=== PATIENT | male | born 1950 | race Caucasian/White ===

== ENCOUNTER → 2016-08-15 | Outpatient (CLI) | payer OTHER, MEDICARE | LOC: BHFA 10:45 | PROVIDERS: ATTEND Internal Medicine Cardiovascular Disease | DX: I51.7 Cardiomegaly (principal) ==

== ENCOUNTER → 2016-09-19 | Outpatient (CLI) | payer OTHER, MEDICARE | LOC: FIMAGING 12:26 | PROVIDERS: ATTEND Internal Medicine Cardiovascular Disease | DX: E04.1 Nontoxic single thyroid nodule (principal) ==

== ENCOUNTER → 2017-09-09 | Outpatient (CLI) | payer OTHER, MEDICARE | LOC: BHFA 08:30 | PROVIDERS: ATTEND Internal Medicine | DX: I25.10 Atherosclerotic heart disease of native coronary artery without angina pectoris (principal); I10 Essential (primary) hypertension | CPT/HCPCS: 78452; 93017; 93306; A9500; J2785 ==

== ENCOUNTER 2018-07-04 07:42 | Day surgery (SDC) | payer OTHER, MEDICARE ==
[2018-07-04] MEDS ORDERED: BUPIVACAINE 0.5% 30 ML SDV ONE (08:00)
[2018-07-04] MEDS ORDERED: HYDROmorphONE/DILAUDID 2 MG/ML INJ IVP PRN (08:05)
[2018-07-04] MEDS ORDERED: NALOXONE HCL 0.4 MG/ML INJ IVP PRN (08:05)
[2018-07-04] MEDS ORDERED: fentaNYL 100 MCG/2 ML INJ IVP PRN (08:05)
[2018-07-04] MEDS ORDERED: METOCLOPRAMIDE 10 MG/2 ML VIAL IVP PRN (08:05)
[2018-07-04] MEDS ORDERED: oxyCODONE IR 5 MG TAB PO PRN (08:05)
[2018-07-04] MEDS ORDERED: MEPERIDINE 25 MG/0.5 ML AMP IVP PRN (08:05)
[2018-07-04] MEDS ORDERED: PROMETHAZINE HCL 25 MG/ML INJ IVP PRN (08:05)
[2018-07-04] MEDS ORDERED: MIDAZOLAM 2 MG/2 ML VIAL IVP ONE (08:05)
[2018-07-04] MEDS ORDERED: LR 500 ML IV PRN (08:05)
[2018-07-04] MEDS ORDERED: PHENYLEPHRINE HCL 100 MCG/ML SYR IVP PRN (08:05)
[2018-07-04] MEDS ORDERED: ONDANSETRON 4 MG/2 ML VIAL IVP PRN (08:05)
[2018-07-04] MEDS ORDERED: ceFAZolin 2 GM/DEXTROSE 100 ML IV ONE (08:06)
[2018-07-04] MEDS ORDERED: ROPIVACAINE HCL 150 MG/30 ML INJ ONE (08:11)
[2018-07-04] MEDS ORDERED: PROPOFOL 200 MG/20 ML VIAL ONE (08:11)
[2018-07-04] MEDS ORDERED: PROPOFOL/EMULSION 500 MG/50 ML BOTTLE IV ONE (08:11)
[2018-07-04] MEDS ORDERED: fentaNYL 100 MCG/2 ML INJ ONE ×2 (08:11→09:53)
[2018-07-04] MEDS ORDERED: DEXAMETHASONE 4 MG/ML VIAL ONE (08:11)
[2018-07-04] MEDS ORDERED: LIDOCAINE 2% 5 ML SDV ONE ×2 (08:11→08:17)
[2018-07-04] MEDS ORDERED: ONDANSETRON 4 MG/2 ML VIAL ONE (08:11)
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
[2018-07-04] MEDS ORDERED: LR 1,000 ML IV ONE (08:40)
--- NOTE | 2018-07-04 09:14 | PDGENHP ---
History & Physical Chief Complaint: R bunion History of Present Illness: pain in right foot long standing Pertinent Past, Social, Family History: sleep apnea, enlarged heart Relevant Physical Exam: bunion right foot Cardiorespiratory Assessment: heart rrr. lungs clear. OR for R bunion correction, 2-4 h toes
[2018-07-04] MEDS ORDERED: ePHEDrine SULFATE 25 MG/5 ML SYR ONE ×2 (10:14)
--- NOTE | 2018-07-04 11:06 | POSTOPPROG ---
Post Op Note Date of Operation: 07/04/18 Surgeon: Roman Snell Tobacco Stripper Hand: Gamal Anesthesia: GET(General Endotracheal) Pre-op Diagnosis: R valgus, h toes Post-op Diagnosis: above Indication: above Procedure: R DSPT, POWO, 2-3h toe, 4th flexor tendon Inf/Abcess present in the surg proc area at time of surgery?: No EBL: Minimal
[2018-07-04 12:31] VITALS: BP 122/71
--- NOTE | 2018-07-04 13:47 | GOP ---
DATE OF OPERATION: 07/04/2018 SURGEON: Roman Snell MD SCREWHEAD STONER AND POLISHER: Yury Yeung SA ANESTHESIA: General with popliteal and saphenous block performed for postop pain control. PREOPERATIVE DIAGNOSIS: Right hallux valgus, right 2nd hammertoe, right 3rd hammertoe, and right 4th mallet toe. POSTOPERATIVE DIAGNOSIS: Right hallux valgus, right 2nd hammertoe, right 3rd hammertoe, and right 4th mallet toe. PROCEDURE PERFORMED: 1. Right hallux valgus correction with distal soft tissue procedure. 2. Right 1st ray proximal opening wedge osteotomy. 3. Right 2nd and 3rd hammertoe correction. 4. Right 2nd metatarsophalangeal capsulotomy with extensor tendon lengthening. 5. Right 4th toe flexor tenotomy. FINDINGS: SPECIMENS: None. ESTIMATED BLOOD LOSS: 5 mL. INDICATIONS: A male with significant hallux valgus and pain. He failed conservative treatment and elected to proceed. Informed consent was obtained. All questions were answered. We discussed risks of recurrence, continued pain, blood loss, nerve injury, wound complications, and dysvascularity, and he elected elected to proceed. DESCRIPTION OF PROCEDURE: He was taken to the operating suite and sterilely prepped and draped in normal fashion. Time-out was performed verifying the site and side and agreed upon by all members of the team. The procedure was begun by making 1st webspace incision. I dissected down through the adventia I released the adductor tendon, freed the sesamoid and then pie crusted the capsule and then manually reduced the toe into varus, correcting a portion of the deformity. I then made an incision medially and isolated the nerve and protected this. I isolated the capsule, and I incised this and removed redundant capsule. I then removed the medial eminence with a saw. I then isolated the point for the proximal osteotomy with a wire, checked this fluoroscopically and then made this cut and then hinged off the lateral cortex. I selected a 4 mm plate with fluoroscopic assistance, placed this, placed screws in this and then bone graft, and I liked my correction of the DYLAN and hallux valgus angle. I made incisions over 2 and 3 PIP joints. I dissected down to these and resected the joints on both sides, preparing these for fusion. I then drilled and placed Trim-it pins in both of these, straightening the toes. I then performed a 2nd MTP capsulotomy, lengthening the extensor tendon and then releasing the capsule to correct the 2nd toe extension deformity. I then made a 4th toe flexor tenotomy percutaneously underneath the toe for the DIP joint correction. It was irrigated. The medial capsule was plicated with 0 Vicryl with final x-rays showing good correction, good implant placement. He was closed with 2-0 Vicryl, 3-0 Vicryl, 3-0 Quill, nylon, then Dermabond. He was taken to PACU in stable condition. COMPLICATIONS: None. DRAINS: None. CONDITION: Stable. IMPLANTS: Arthrex proximal opening wedge plate, 4 mm plate, and Trim-It pin. /[id number]/MODL MTDD
--- NOTE | 2018-07-04 13:52 | POSTANESTH ---
Post Anesthetic Evaluation Cardiovascular Status: Normal, Stable Respiratory Status: Normal, Stable Level of Consciousness/Mental Status: Can Participate in Eval Pain Control: Adequate, Prn Tx Ordered Nausea/Vomiting Control: Adequate, Prn Tx Ordered Complications Possibly Related to Anesthesia: None Noted
== END 2018-07-04 12:50 | disposition home or self-care (01) ==
LOC: FSGY 07:42
PROVIDERS: ATTEND Orthopaedic Surgery
DX: M21.611 Bunion of right foot (principal); M20.41 Other hammer toe(s) (acquired), right foot; G47.33 Obstructive sleep apnea (adult) (pediatric); I51.7 Cardiomegaly; E78.5 Hyperlipidemia, unspecified
CPT/HCPCS: C1713; J1100; J2250; J2405; J2704; J2795; J3010